=== PATIENT | male | born 2000 | race African-American/Black ===

== ENCOUNTER 2024-11-15 18:54 | Emergency (ER) | payer BC, SELFPAY ==
[2024-11-15 18:59] VITALS: BP 126/84; PULSE 105; TEMP 37.1; O2SAT 97; BMI 23.7
--- NOTE | 2024-11-15 19:08 | ED.GENADUL1 ---
HPI HPI - General Adult General Chief complaint: Shortness of Breath/Dyspnea Stated complaint: Shortness of breath Time Seen by Provider: 11/15/24 19:03 Source: patient Mode of arrival: walk-in Limitations: no limitations History of Present Illness HPI narrative: Patient is a 24-year-old male who presents to the ER with concerns of an asthma exacerbation. Patient states he lives an hour from here and was visiting a friend who had a dog. He knows that dogs are a trigger for his asthma and he did not have his inhaler with him to calm symptoms. He is able to speak in full sentences and has a stable pulse ox on arrival. He denies any itching or hives there is no stridor. Patient notes he can feel his chest wheezing but is still able to speak in full sentences he has no complaints of chest pain or discomfort and denies any abdominal pain. Patient appears nontoxic but requesting a breathing treatment for his asthma. Related Data Allergies Allergy/AdvReac Type Severity Reaction Status Date / Time cat dander Allergy Unknown Unknown Verified 11/15/24 19:02 dog dander Allergy Unknown Unknown Verified 11/15/24 19:02 Review of Systems ROS Constitutional Denies: fever or chills Eyes Denies: change in vision or blurry vision Ears, nose, mouth, and throat Denies: throat pain, neck pain, throat swelling or difficulty swallowing Cardiovascular Denies: chest pain or palpitations Respiratory Reports: shortness of breath and wheezing; Denies: cough Gastrointestinal Denies: abdominal pain, nausea or vomiting Genitourinary Denies: painful urination or urinary frequency Musculoskeletal Denies: back pain, neck pain or loss of height Integumentary/Breast Denies: rash Neurological Denies: headache Psychiatric Denies: anxiety Endocrine Denies: excessive urination PFSH PFSH Social History Little interest or pleasure in doing things: not at all Feeling down, depressed, or hopeless: not at all Exam Narrative Exam Narrative: Nurses notes and vital signs reviewed and patient is not hypoxic. General: The patient appears well and in no apparent distress. Patient is resting comfortably on cart. Skin: Warm, dry, no pallor noted. No evidence of rash. Head: Normocephalic, atraumatic Neck: Supple, trachea mid-line, no tenderness, no lymphadenopathy Eye: Pupils are equal, round and reactive to light, EOMI Ears, Nose, Mouth, and Throat: There is no tongue swelling, external exam unremarkable Cardiovascular: Regular Rate and Rhythm Respiratory: Patient is in no distress, no accessory muscle use, lungs are clear to auscultation, no rales or rhonchi. Slight expiratory wheeze. Chest Wall: no chest wall pain, denies pleuritic pain. Back: non-tender, no CVA tenderness Musculoskeletal: normal ROM, no tenderness, no swelling GI: Normal bowel sounds, no tenderness to palpation, no masses appreciated. No rebound, guarding, or rigidity noted. Neurological: A&O x4 Psychiatric: Cooperative. Constitutional Vital Signs, click to edit/add: Last Vital Signs Temp 98.7 F 11/15/24 18:59 Pulse 100 H 11/15/24 19:54 Resp 18 11/15/24 19:54 BP 118/64 11/15/24 19:54 Pulse Ox 97 11/15/24 19:54 O2 Del Method Room Air 11/15/24 19:26 Course Vital Signs Vital signs: Vital Signs Temperature 98.7 F 11/15/24 18:59 Pulse Rate 105 H 11/15/24 18:59 Respiratory Rate 18 11/15/24 18:59 Blood Pressure 126/84 11/15/24 18:59 Pulse Oximetry 97 11/15/24 18:59 Oxygen Delivery Method Room Air 11/15/24 18:59 Temperature 98.7 F 11/15/24 18:59 Pulse Rate 100 H 11/15/24 19:54 Respiratory Rate 18 11/15/24 19:54 Blood Pressure 118/64 11/15/24 19:54 Pulse Oximetry 97 11/15/24 19:54 Oxygen Delivery Method Room Air 11/15/24 19:26 Medical Decision Making MDM Narrative Medical decision making narrative: Patient presents with concern of asthma exacerbation with exposure to a friend's dog. His T-shirt was noted to have a large amount of dog for on it and it was removed and placed into a patient belonging bag. He denies any chest pain or discomfort but states his main concern is that he left his inhaler at home. He is agreeable to a albuterol nebulizer here. We will reassess his breathing. He does not feel a chest x-ray is necessary at this time with known history and exposures. Patient states he has used steroid inhalers in the past but he denies any current upper respiratory symptoms for illness and feels it was an environmental allergy exposure, Normally I would just use my inhaler. Patient reevaluated, reports he is feeling much better, states he noticed a difference even after taking off his shirt before the breathing treatment. Patient has no wheezing on reexamination. We discussed indication for steroids and patient states he has been on these in the past and would like to hold he is driving home and has his inhalers at home to use for additional treatments if needed. He will go to his family doctor for follow-up or ER if symptoms acutely worsen for reevaluation. Patient denies the need for chest x-ray The patient is to followup with primary care physician in next 2-3 days or to return to the emergency department should any of the signs or symptoms worsen or new symptoms develop. Patient had questions answered. The patient agrees with the following Diagnosis and Treatment plan and the patient will be discharged home. Discharge Plan Discharge Chief Complaint: Shortness of Breath/Dyspnea Clinical Impression: Asthma with acute exacerbation Patient Disposition: Home, Self-Care Time of Disposition Decision: 19:49 Condition: Good Mode of Transportation: Private Vehicle Print Language: French Instructions: Asthma (ED) Additional Instructions: Your doctor in 3-4 days Referrals: Physician,Non-Staff, MD [Primary Care Provider] - 1 week Discharge Date/Time: 11/15/24 19:57
[2024-11-15] MEDS: ALBUTEROL SULFATE 2.5 MG/3 ML VIAL NEB IH (19:24)
--- NOTE | 2024-11-15 19:24 | PC.NURSE ---
complains of being exposed to dog in which he has allergies to dogs, and forgot his inhaler at home. this patient is able to talk full sentences and no accessory muscle used
[2024-11-15 19:26] VITALS: PULSE 105; O2SAT 98
[2024-11-15 19:54] VITALS: BP 118/64; PULSE 100; O2SAT 97
--- NOTE | 2024-11-15 19:57 | PC.NURSE ---
i gave this patient verbal and written discharge orders and this patient voices yes to understanding these. at time of discharge voices no concerns and shows no signs of distress
== END 2024-11-15 19:57 | disposition home or self-care (01) ==
PROVIDERS: Emergency Provider Emergency Medicine
DX: J45.901 Unspecified asthma with (acute) exacerbation (principal)
CPT/HCPCS: 94640; 99283